=== PATIENT | male | born 1965 | race Caucasian/White ===

== ENCOUNTER 2016-12-16 10:04 | Emergency (ER) | payer BC ==
[2016-12-16 10:54] VITALS: BP 164/101
--- NOTE | 2016-12-16 11:26 | UC ---
Hypertension HPI - HPI Summary HPI Summary: 51 yo male has been anxious about his recent high BP reading (weeks) FHx of HTN no CP/SOB - History of Current Complaint Chief Complaint: UCGeneralIllness Stated Complaint: BP ISSUE Time Seen by Provider: 12/16/16 11:03 Hx Obtained From: Patient Onset/Duration: Gradual Onset, Lasting Weeks Timing: Constant Reported Blood Pressure Prior To Arrival:: has been as high as 190/100 Aggravating Factor(s): Nothing Alleviating Factor(s): Nothing Associated Signs And Symptoms: Positive: Negative - Allergies/Home Medications Allergies/Adverse Reactions: Allergies Allergy/AdvReac Type Severity Reaction Status Date / Time No Known Allergies Allergy Verified 03/25/14 19:45 Home Medications: Home Medications Sertraline* [Zoloft*] 25 mg PO DAILY 12/16/16 [History Confirmed 12/16/16] buPROPion TAB* [Wellbutrin TAB*] 150 mg PO DAILY 12/16/16 [History Confirmed ] busPIRone TAB* [Buspar TAB *] 15 mg PO DAILY 12/16/16 [History Confirmed ] PMH/Surg Hx/FS Hx/Imm Hx Previously Healthy: Yes - Surgical History Surgical History: Yes Surgery Procedure, Year, and Place: wisdom teeth - Family History Known Family History: Positive: Cardiac Disease, Hypertension Negative: Diabetes - Social History Alcohol Use: Occasionally Substance Use Type: None Smoking Status (MU): Never Smoked Tobacco - Immunization History Most Recent Tetanus Shot: not sure Review of Systems Constitutional: Negative Skin: Negative Eyes: Negative ENT: Negative Respiratory: Negative Cardiovascular: Negative Gastrointestinal: Negative Genitourinary: Negative Motor: Negative Neurovascular: Negative Musculoskeletal: Negative Neurological: Negative Psychological: Negative All Other Systems Reviewed And Are Negative: Yes Physical Exam Triage Information Reviewed: Yes Appearance: Well-Appearing, No Pain Distress, Well-Nourished Vital Signs: Initial Vital Signs Temp 98.2 F 12/16/16 10:42 Pulse 64 12/16/16 10:42 Resp 16 12/16/16 10:42 BP 164/101 12/16/16 10:42 Pulse Ox 99 12/16/16 10:42 Eyes: Positive: Conjunctiva Clear, Other: - fundi no H/E ENT: Positive: Hearing grossly normal. Negative: Nasal congestion, Nasal drainage, Trismus, Muffled/hoarse voice Neck: Positive: Supple, Nontender Respiratory: Positive: Lungs clear, Normal breath sounds, No respiratory distress Cardiovascular: Positive: RRR, No Murmur Musculoskeletal: Positive: Strength Intact, ROM Intact Neurological: Positive: Alert Psychological Exam: Normal Skin Exam: Normal Hypertension Course/Dx - Differential Dx/Diagnosis Provider Diagnoses: elevated BP Discharge - Discharge Plan Condition: Stable Disposition: HOME Patient Education Materials: Hypertension (ED) Referrals: Hans Osborn MD [Primary Care Provider] - (your BP was 164/101) Additional Instructions: call your provider for suggestions re follow up
== END 2016-12-16 11:26 | disposition home or self-care (01) ==
LOC: UCEAST 10:04
DX: R03.0 Elevated blood-pressure reading, without diagnosis of hypertension (principal)
CPT/HCPCS: 99211; G0463

== ENCOUNTER 2021-07-07 20:00 | Inpatient (IN) ==
[2021-07-07 21:36] LABS: ABS Eosinophils 0.1 10^3/ul (0-0.6); ABS Lymphocytes 2.3 10^3/ul (1.0-4.8); ABS Monocytes 0.5 10^3/ul (0-0.8); ABS Neutrophils 3.7 10^3/ul (1.5-7.7); Eosinophil % 0.9 %; Hematocrit 42 % (42-52); Hemoglobin 14.5 g/dL (14.0-18.0); Lymphocyte % 34.5 %; Mean Corpuscular HGB Conc 35 g/dL (31-36); Mean Corpuscular Hemoglobin 32 pg (27-31); Mean Corpuscular Volume 91 fL (80-94); Mean Platelet Volume 9.1 fL (7.4-10.4); Nucleated Red Blood Cells % 0.1; Platelet Count 239 10^3/uL (150-450); Red Cell Distribution Width 13 % (10-15); White Blood Count 6.6 10^3/uL (3.5-10.8)
[2021-07-07 21:41] LABS: Urine Appearance Clear; Urine Bilirubin Negative (Negative); Urine Blood 1+ (Negative); Urine Color Yellow; Urine Glucose Negative (Negative); Urine Ketones Negative (Negative); Urine Nitrite Negative (Negative); Urine Protein Negative (Negative); Urine Urobilinogen Negative (Negative)
[2021-07-07 21:48] LABS: Urine Bacteria Absent (Absent); Urine Red Blood Cell 1+(3-5/hpf) (Absent); Urine White Blood Cell Trace(0-5/hpf) (Absent)
[2021-07-07 21:53] LABS: ALT 19 U/L (7-52); AST 23 U/L (13-39); Albumin 4.3 g/dL (3.2-5.2); Albumin/Globulin Ratio 1.7 (1-3); Alkaline Phosphatase 56 U/L (35-149); Anion Gap 6 mmol/L (2-11); Blood Urea Nitrogen 10 mg/dL (6-24); CO2 Carbon Dioxide 33 mmol/L (22-32); Calcium 9.8 mg/dL (8.6-10.3); Chloride 101 mmol/L (101-111); Globulin 2.5 g/dL (2-4); Glucose 106 mg/dL (70-100); Potassium 3.7 mmol/L (3.5-5.0); Sodium 140 mmol/L (135-145); Total Protein 6.8 g/dL (6.4-8.9); eGFR CKD-EPI 92.8 (>60)
[2021-07-07 21:57] LABS: Acetaminophen < 15 mcg/mL; Alcohol, S < 13 mg/dL (<13); Salicylate < 2.50 mg/dL (<30)
[2021-07-07 22:00] LABS: Urine Benzodiazepine Screen None Detected (None Detect); Urine Cannabinoids Screen None Detected (None Detect); Urine Opiates Screen None Detected (None Detect)
[2021-07-07 22:13] LABS: TSH Ultra Thyroid Stim Horm 1.38 mcIU/mL (0.34-5.60)
[2021-07-08] MEDS ORDERED: Al Hydrox/Mg Hydrox/Simet LIQ 30 ML UDC PO PRN (02:36)
[2021-07-08 03:40] LABS: Rapid COVID-19 Molecular Undetected (Undetected)
[2021-07-08] MEDS: Vitamin THERAPEUTIC TAB PO SCH (10:04)
[2021-07-09 07:41] LABS: HDL Cholesterol 60.5 mg/dL
[2021-07-09] MEDS: Vitamin THERAPEUTIC TAB PO SCH (08:45)
[2021-07-10] MEDS: Vitamin THERAPEUTIC TAB PO SCH (08:39)
[2021-07-10 10:21] VITALS: BP 175/96
== END 2021-07-10 16:00 | disposition home or self-care (01) | DRG 753 ==
LOC: ED 20:00 → BSU 07-08 02:43
PROVIDERS: ADMIT Psychiatry & Neurology Psychiatry; ATTEND Student in an Organized Health Care Education/Training Program